=== PATIENT | male | born 1960 | race Hispanic/Latino ===

== ENCOUNTER 2020-10-05 13:55 | Emergency (ER) | payer BC ==
[2020-10-05] MEDS ORDERED: ACETAMINOPHEN-CODEINE 300/30MG TAB ONE ×2 (14:17→14:20)
[2020-10-05] MEDS ORDERED: AZITHROMYCIN 250 MG TABLET PO ONE (14:18)
[2020-10-05] MEDS ORDERED: AMOXICILLIN/POTASSIUM CLAV 875-125 TABLET PO ONE (14:18)
[2020-10-05] MEDS ORDERED: ALBUTEROL INHALER 90MCG/INH IH ONE (14:48)
== END 2020-10-05 16:22 | disposition home or self-care (01) ==
LOC: EDH 13:55
DX: U07.1 COVID-19 (principal); B34.9 Viral infection, unspecified; Z72.0 Tobacco use
CPT/HCPCS: 71045; 87426; 99284; U0003